=== PATIENT | male | born 1955 | race Caucasian/White ===

== ENCOUNTER 2017-03-15 07:47 | Inpatient (IN) | payer OTHER, MEDICAID ==
[~2017-03-15] VITALS: Ht 170.2 cm; Wt 73.0 kg
[2017-03-15 07:52] VITALS: BP 121/79
--- NOTE | 2017-03-15 07:58 | NUR ---
Patient assisted to Bed 2 at this time.
--- NOTE | 2017-03-15 08:03 | NUR ---
Pt BIB clay stain mixer for cough and generalized weakness since 344 today. Per caretake, pt is able to abulate by himself with little support normally. But today, he was not able to. Breathing is even and unlabored. Lung sounds are clear bilaterally. VSS. No acute distress.
[2017-03-15] MEDS ORDERED: CARB100T PO (08:05)
[2017-03-15] MEDS ORDERED: CEPH250C16 PO (08:05)
[2017-03-15] MEDS ORDERED: [UNRECOGNIZED DRUG - CODE] PO (08:05)
[2017-03-15] MEDS ORDERED: LACT10SO1 PO (08:05)
[2017-03-15] MEDS ORDERED: SENN8.8S7 PO (08:05)
[2017-03-15] MEDS ORDERED: MULT-1528 PO (08:05)
[2017-03-15] MEDS ORDERED: TRAZ-286 PO (08:05)
[2017-03-15] MEDS ORDERED: CODE118S2 PO (08:05)
[2017-03-15] MEDS ORDERED: MIRABULK PO (08:05)
[2017-03-15] MEDS ORDERED: COL100L PO (08:05)
[2017-03-15] MEDS ORDERED: NACL 0.9% 1,000 ML IV SCH (08:21)
[2017-03-15] MEDS ORDERED: OSELTAMIVIR PHOSPHATE 75 MG CAP PO ONE (08:25)
[2017-03-15 08:58] LABS: BASOPHILS # (AUTO) 0.1 K/uL (0.00-0.22); BASOPHILS % (AUTO) 1.2 % (0.0-2.0); HEMATOCRIT 38.8 % (36-52); HEMOGLOBIN 13.1 g/dL (12.0-18.0); LYMPHOCYTES # (AUTO) 0.6 K/uL (2.0-11.5); LYMPHOCYTES % (AUTO) 10.8 % (20.5-51.1); MEAN CORPUSCULAR HEMOGLOBIN 32 pg (27-31); MEAN CORPUSCULAR HGB CONC 34 g/dL (33-37); MEAN CORPUSCULAR VOLUME 94 fL (80-94); MONOCYTES # (AUTO) 0.6 K/uL (0.8-1.0); MONOCYTES % (AUTO) 11.7 % (1.7-9.3); NEUTROPHILS # (AUTO) 4.1 K/uL (1.8-7.7); NEUTROPHILS % (AUTO) 76.3 % (42.2-75.2); PLATELET COUNT (AUTO) 126 K/uL (140-450); RED BLOOD CELL COUNT(AUTO) 4.14 MIL/uL (4.20-6.10); RED CELL DISTRIBUTION WIDTH 11.7 % (11.6-13.7)
[2017-03-15 09:32] LABS: ANION GAP 12.8 (8-16); CARBON DIOXIDE 29.3 mmol/L (21-32); POTASSIUM 4.1 mmol/L (3.5-5.1)
[2017-03-15 09:33] LABS: WHITE BLOOD COUNT (AUTO) 5.4 K/uL (4.8-10.8)
[2017-03-15 09:36] LABS: ALBUMIN 3.2 g/dL (3.4-5.0); APPEARANCE,URINE CLEAR (CLEAR); BILIRUBIN,URINE NEGATIVE (NEGATIVE); BLOOD, URINE 2+ (NEGATIVE); COLOR,URINE YELLOW (YELLOW); LEUKOCYTE ESTERASE ,URINE NEGATIVE (NEGATIVE); NITRITE, URINE POSITIVE (NEGATIVE); TOTAL BILIRUBIN 0.2 mg/dL (0.0-1.0); UGLUCOSE NEGATIVE (NEGATIVE)
[2017-03-15 09:46] LABS: RBC,URINE 0-5 (RARE) /HPF (0-5); WBC,URINE 0-5 (RARE) /HPF (0-5)
[2017-03-15 09:48] LABS: PROTHROMBIN TIME 11.2 secs (10.8-13.4)
[2017-03-15] MEDS ORDERED: ACETAMINOPHEN EXTRA STRENGTH 500 MG TAB PO ONE (09:55)
--- NOTE | 2017-03-15 09:56 | NUR ---
Pt has fever 101.6, cooling measures initiated, and communicated with , ordered tylenol. NAD
[2017-03-15] MEDS ORDERED: cefTRIAXone 1,000 MG VIAL ONE (09:59)
[2017-03-15] MEDS ORDERED: ZOLPIDEM 5 MG TAB PO PRN (10:45)
[2017-03-15] MEDS ORDERED: ACETAMINOPHEN 325 MG TAB PO PRN (10:45)
[2017-03-15] MEDS ORDERED: LORazepam 0.5 MG TAB PO PRN (10:45)
[2017-03-15] MEDS ORDERED: ONDANSETRON 4 MG/2 ML VIAL IM/IVP PRN (10:45)
[2017-03-15] MEDS ORDERED: HYDROcodone/APAP 7.5/325 MG 1 TAB PO PRN (10:45)
[2017-03-15] MEDS ORDERED: MORPHINE SULFATE 2 MG/ML SYR IVP PRN (10:45)
[2017-03-15] MEDS ORDERED: DOCUSATE SODIUM 100 MG GELCAP PO PRN (10:45)
--- NOTE | 2017-03-15 11:15 | NUR ---
Patient will be admitted to care of Dr Willson. Admited to tele. Will go to [id number]. Belongings list completed. Report to ZAHRAA Falcon.
--- NOTE | 2017-03-15 11:30 | NUR ---
PT TO ROOM 113 FROM ER, REPORT RECIEVED, PT AWAKE ALERT, APHASIC AT BASELINE, INITIAL VITALS TAKEN, ASSESSMENT DONE, PT PLACED ON MONUMENT SETTER, PT TAKES OFF HIS OWN O2, O2SAT 94% RA, SKIN WARM/HOT DRY COLOR WNL, ICE PACK UNDER ARMS, TEMP 101.6, PT AND PILOT SUPERVISOR LOISE ORIENTED TO ROOM AND FLOOR, PLAN OF CARE REVIEWED, SZ/FALL PRECAUTION INITIATED, WILL CONTINUE TO MONTIOR.
[2017-03-15 11:35] VITALS: BP 119/71
[2017-03-15] MEDS: NACL 0.9% 1,000 ML IV SCH ×2 (12:23→20:45)
[2017-03-15 14:26] LABS: CHOL/HDL RATIO 2.3 (1-4.5); MAGNESIUM 2.2 mg/dL (1.8-2.4)
[2017-03-15 14:27] LABS: FREE T4 (FREE THYROXINE) 0.66 ng/dL (0.76-1.46); THYROID STIMULATING HORMONE 1.29 uIU/mL (0.34-3.74)
--- NOTE | 2017-03-15 15:26 | NUR ---
PATIENT HAS BEEN SCREENED AND CATEGORIZED HIGH NUTRITION RISK. PATIENT WILL BE SEEN WITHIN 1-2 DAYS OF ADMISSION. 03/15/17-03/16/[address]
[2017-03-15 16:00] VITALS: BP 121/72
[2017-03-15] MEDS ORDERED: ALBUTEROL SULFATE/IPRATROPIU 3 ML SOL IH PRN (16:00)
--- NOTE | 2017-03-15 18:45 | NUR ---
ASSISTED WITH PUREE DIET FEEDING IN UP RIGHT POSITION, LOW APPETITE FOR PUREE FOOD, TOOK ALL OF THINKENED APPLE JUICE AND BROTH WELL, IVF INFUSING WELL, SITE CLEAR, WILL CONTINUE TO MONITOR.
--- NOTE | 2017-03-15 19:20 | NUR ---
REPORT GIVEN TO CUSTOMER MARKETING INTERN NURSE, PT IN STABLE CONDITION.
--- NOTE | 2017-03-15 19:21 | NUR ---
RECEIVED REPORT FROM FISHER POT NURSE PT IN STABLE CONDITION. NO S/S OF DISTRESS NOTED. PT HAS MR AND IS APHASIC. PT IS AWAKE AND ALERT. PT IS ON ROOM AIR AND O2 SAT IS 97%. IV TO R AC 20G PATENT AND INTACT, INFUSING WELL. SKIN IS WARM AND DRY TO TOUCH, COLOR WNL. SKIN INTACT. INITIAL ASSESSMENT COMPLETED. PLAN OF CARE DISCUSSED WITH PT AT THE BEDSIDE, PT UNABLE TO COMPREHEND. ALL SAFETY PRECAUTIONS MET, BOARD UPDATED, CALL LIGHT WITHIN REACH, WILL CONTINUE TO MONITOR
[2017-03-15 20:00] VITALS: BP 119/74
--- NOTE | 2017-03-15 20:20 | NUR ---
ASKED DR. JACOBSON ABOUT GIVING PO TAMIFLU SINCE PT HAS NOT HAD SWALLOW EVAL YET. DR. JACOBSON IN TO SEE PT, SHE STATES IT IS OKAY PT TOLERATED ONE PILL IN ER ALREADY.
[2017-03-15] MEDS: OSELTAMIVIR PHOSPHATE 75 MG CAP PO SCH (20:27)
--- NOTE | 2017-03-15 20:29 | NUR ---
GAVE PT PO TAMIFLU WITH APPLE SAUCE, PT TOLERATED WELL. NO S/S OF DISTRESS NOTED. WILL CONTINUE TO MONITOR
[2017-03-16] VITALS (7 sets, daily range): BP systolic 115–133; BP diastolic 64–81
[2017-03-16] MEDS: NACL 0.9% 1,000 ML IV SCH ×2 (02:32→18:31)
[2017-03-16 06:12] LABS: T4 (THYROXINE) 4.4 ug/dL (4.5-12.0)
[2017-03-16] MEDS: ALBUTEROL SULFATE/IPRATROPIU 3 ML SOL IH SCH ×3 (07:00→19:57)
[2017-03-16 07:09] LABS: BASOPHILS # (AUTO) 0.1 K/uL (0.00-0.22); BASOPHILS % (AUTO) 2.3 % (0.0-2.0); EOSINOPHILS % (AUTO) 0.3 % (0.0-4.0); HEMATOCRIT 38.3 % (36-52); HEMOGLOBIN 12.9 g/dL (12.0-18.0); LYMPHOCYTES % (AUTO) 19.1 % (20.5-51.1); MEAN CORPUSCULAR HEMOGLOBIN 32 pg (27-31); MEAN CORPUSCULAR HGB CONC 34 g/dL (33-37); MEAN CORPUSCULAR VOLUME 96 fL (80-94); MONOCYTES # (AUTO) 0.6 K/uL (0.8-1.0); MONOCYTES % (AUTO) 11.6 % (1.7-9.3); NEUTROPHILS # (AUTO) 3.7 K/uL (1.8-7.7); NEUTROPHILS % (AUTO) 66.7 % (42.2-75.2); PLATELET COUNT (AUTO) 109 K/uL (140-450); RED CELL DISTRIBUTION WIDTH 11.4 % (11.6-13.7); WHITE BLOOD COUNT (AUTO) 5.4 K/uL (4.8-10.8)
--- NOTE | 2017-03-16 07:30 | NUR ---
ENDORSEMENT RECEIVED FROM FINISHING AREA SUPERVISOR NURSE. PATIENT IS SLEEPING COMFORTABLY. RESPIRATION EVEN, UNLABOR ON ROOM AIR. SKIN DRY AND WARM. IV PATENT AND INTACT. NO DISTRESS NOTED AT THIS TIME, FLACC 0. BED AT LOW POSITION WITH PADDED SIDE RAILS. CALL LIGHT WITHIN REACH.
[2017-03-16 07:35] LABS: MAGNESIUM 1.9 mg/dL (1.8-2.4); PHOSPHORUS 2.9 mg/dL (2.5-4.9)
--- NOTE | 2017-03-16 07:36 | NUR ---
REPORT GIVEN TO DAY NURSE FOR CONTINUITY OF CARE, PT IN STABLE CONDITION NO S/S OF DISTRESS
[2017-03-16 07:44] LABS: ANION GAP 12.2 (8-16); CARBON DIOXIDE 27.7 mmol/L (21-32); POTASSIUM 3.9 mmol/L (3.5-5.1)
[2017-03-16] MEDS: OSELTAMIVIR PHOSPHATE 75 MG CAP PO SCH ×2 (08:11→21:07)
[2017-03-16 08:24] LABS: CREATININE 0.7 mg/dL (0.7-1.3)
--- NOTE | 2017-03-16 09:53 | NUR ---
PATIENT AWAKE, RESPONSIVE TO NAME. RESPIRATION EVEN, UNLABOR ON ROOM AIR. FLACC 0. NO DISTRESS NOTED AT THIS TIME. SPEECH THERAPIST IS AT BEDSIDE. CALL LIGHT WITHIN REACH
[2017-03-16] MEDS ORDERED: carBAMazepine 200 MG TAB PO SCH (10:13)
[2017-03-16] MEDS ORDERED: POLYETHYLENE GLYCOL 17 GM/PKT PO SCH (10:14)
[2017-03-16] MEDS ORDERED: SENNA 8.6 MG TAB PO SCH (10:15)
--- NOTE | 2017-03-16 10:31 | NUR ---
WELLNESS MANAGER note (bedside swallow evaluation completed) [id number]. Bedside swallow evaluation completed, please see report for details. WELLNESS MANAGER provided pt with education regarding purpose of evaluation and rationale for recommendations. Pt with profound MR and unlikely to benefit from education provided. No family/caregivers present. Recommend: 1) pureed textures 2) nectar-thick liquids 3) strict aspiration precautions (including pt must be FULLY awake/alert/upright for any PO intakes, alternate small/slow bites and sips, stop giving PO if pt becomes less alert/SOB/coughing) 4) 100% feeding assistance 5) no further WELLNESS MANAGER intervention indicated at this time. Physician to reorder if further concerns arise, as appropriate. G-codes: [id number] [id number] [id number] [facility] NOMS level 3. PVE for d/w RN (Karla) prior to and following bedside swallow evaluation completion. WELLNESS MANAGER posted safe swallow strategies above pt's HOB.
--- NOTE | 2017-03-16 12:30 | NUR ---
PATIENT IS AWAKE, RESPONSIVE TO NAME. RESPIRATION EVEN, UNLABOR ON ROOM AIR. FLACC 0. NO DISTRESS NOTED AT THIS TIME. CALL LIGHT WITHIN REACH
--- NOTE | 2017-03-16 14:00 | NUR ---
PATIENT IS SLEEPING COMFORTABLY. RESPIRATION EVEN, UNLABOR ON ROOM AIR. FLACC 0. NO DISTRESS NOTED AT THIS TIME. CALL LIGHT WITHIN REACH
--- NOTE | 2017-03-16 14:32 | NUR ---
03/16/2017 RD INITIAL ASSESSMENT COMPLETED PLEASE REFER TO NUTRITION ASSESSMENT UNDER CARE ACTIVITY FOR ESTIMATED NUTRITIONAL NEEDS. 1.DIETITIAN WILL MONITOR PO INTAKE, NUTRITION-RELATED LABS TRENDING WNL, SKIN INTEGRITY, WEIGHTS, GI FUNCTION. 2.CONTINUE CURRENT DIET OF PUREE WITH HONEY THICKENED LIQUIDS TOLEARTED. 3.RD TO FOLLOW-UP IN 2-3 DAYS PATIENT IS HIGH RISK. RUBY [address] Addendum: 03/16/17 at [address] SPOKE WITH DR. LIRIANO, DISCUSSED MARKETING COORDINATOR RECOMMENDATION FOR NECTAR THICK LIQUIDS, DR. LIRIANO STATED HE WILL CHANGE DIET ORDER
--- NOTE | 2017-03-16 16:00 | NUR ---
COOLING MEASURE WAS APPLIED. 2 ICE PACKS UNDER AXILLARY.
--- NOTE | 2017-03-16 18:22 | NUR ---
PATIENT IS AWAKE, ALERT, EATING DINNER. RESPIRATION EVEN, UNLABOR ON ROOM AIR. NO DISTRESS NOTED. FLACC 0. IV PATENT AND INTACT. CALL LIGHT WITHIN REACH
--- NOTE | 2017-03-16 19:16 | NUR ---
ENDORSEMENT GIVEN TO THE HVAC LEAD NURSE. PATIENT IS STABLE AT THIS TIME
--- NOTE | 2017-03-16 19:30 | NUR ---
RECEIVED REPORT FROM DAY SHIFT RN, PATIENT RESTING IN BED, NO S/S OF DISTRESS NOTED, RESPIRATION EVEN AND UNLABORED, IV PATENT AND INTACT, INFUSING NS AT 100ML/HR, CALL LIGHT WITHIN REACH, SAFETY MEASURE ENSURED, WILL CONTINUE TO MONITOR.
[2017-03-16] MEDS: traZODone 50 MG TAB PO SCH (21:06)
[2017-03-16] MEDS: carBAMazepine 200 MG TAB PO SCH (21:07)
--- NOTE | 2017-03-16 21:18 | NUR ---
DUE MEDICATION GIVEN, PATIENT TOLERATED WELL. NO S/S OF DISTRESS NOTED, CALL LIGHT WITHIN REACH, SAFETY MEASURE ENSURED, WILL CONTINUE TO MONITOR.
--- NOTE | 2017-03-16 22:34 | NUR ---
NO CHANGE IN CONDITION, PATIENT WAS SLEEPING, BUT EASY TO AROUSE, RESPIRATION EVEN AND UNLABORED, REPOSITIONED PATIENT WITH THE SUPERINTENDENT TRANSMISSION, CALL LIGHT WITHIN REACH, SAFETY MEASURE ENSURED, WILL CONTINUE TO MONITOR.
--- NOTE | 2017-03-17 00:04 | NUR ---
PATIENT WAS SLEEPING, BUT EASY TO AROUSE, NO S/S OF DISTRESS NOTED, RESPIRATION EVEN AND UNLABORED, REPOSITIONED PATIENT WITH THE MARKETING REP, CALL LIGHT WITHIN REACH, SAFETY MEASURE ENSURED, WILL CONTINUE TO MONITOR.
--- NOTE | 2017-03-17 02:45 | NUR ---
NO CHANGE IN CONDITION, PATIENT WAS SLEEPING, EASY TO AROUSE, NO S/S OF DISTRESS NOTED, RESPIRATION EVEN AND UNLABORED, REPOSITIONED PATIENT WITH THE HATCHERY HELPER, CALL LIGHT WITHIN REACH, SAFETY MEASURE ENSURED ,WILL CONTINUE TO MONITOR.
[2017-03-17] MEDS: NACL 0.9% 1,000 ML IV SCH ×3 (03:02→21:49)
[2017-03-17 04:00] VITALS: BP 128/65
--- NOTE | 2017-03-17 04:48 | NUR ---
NO CHANGE IN CONDITION, VITAL SIGNS STABLE, RESPIRATION EVEN AND UNLABORED, NO S/S OF DISTRESS NOTED, CHANGED GOWN AND REPOSITIONED PATIENT WITH THE CLOTH TESTER, CALL LIGHT WITHIN REACH, SAFETY MEASURE ENSURED, WILL CONTINUE TO MONITOR.
--- NOTE | 2017-03-17 06:50 | NUR ---
PATIENT IS SLEEPING, RESPIRATION EVEN AND UNLABORED, NO S/S OF DISTRESS NOTED, CALL LIGHT WITHIN REACH, SAFETY MEASURE ENSURED, WILL CONTINUE TO MONITOR.
--- NOTE | 2017-03-17 07:10 | NUR ---
ENDORSED PLAN OF CARE TO DAY SHIFT RN, PATIENT IS IN STABLE CONDITION, NO S/S OF DISTRESS NOTED.
[2017-03-17] MEDS: ALBUTEROL SULFATE/IPRATROPIU 3 ML SOL IH SCH ×3 (07:15→18:58)
[2017-03-17 07:17] LABS: BASOPHILS # (AUTO) 0.1 K/uL (0.00-0.22); BASOPHILS % (AUTO) 2.3 % (0.0-2.0); EOSINOPHILS # (AUTO) 0.1 K/uL (0-0.4); EOSINOPHILS % (AUTO) 1.4 % (0.0-4.0); HEMATOCRIT 39.2 % (36-52); HEMOGLOBIN 13.2 g/dL (12.0-18.0); LYMPHOCYTES % (AUTO) 26.6 % (20.5-51.1); MEAN CORPUSCULAR HEMOGLOBIN 32 pg (27-31); MEAN CORPUSCULAR HGB CONC 34 g/dL (33-37); MEAN CORPUSCULAR VOLUME 94 fL (80-94); MONOCYTES # (AUTO) 0.4 K/uL (0.8-1.0); MONOCYTES % (AUTO) 10.6 % (1.7-9.3); NEUTROPHILS # (AUTO) 2.2 K/uL (1.8-7.7); NEUTROPHILS % (AUTO) 59.1 % (42.2-75.2); PLATELET COUNT (AUTO) 137 K/uL (140-450); RED BLOOD CELL COUNT(AUTO) 4.18 MIL/uL (4.20-6.10); RED CELL DISTRIBUTION WIDTH 11.6 % (11.6-13.7); WHITE BLOOD COUNT (AUTO) 3.8 K/uL (4.8-10.8)
[2017-03-17 07:25] LABS: ANION GAP 12.7 (8-16); CARBON DIOXIDE 27.2 mmol/L (21-32); CREATININE 0.6 mg/dL (0.7-1.3); POTASSIUM 3.9 mmol/L (3.5-5.1)
--- NOTE | 2017-03-17 07:27 | NUR ---
ENDORSEMENT RECEIVED FROM TAR KETTLE RUNNER NURSE. PATIENT IS AWAKE, ALERT, RESPONSIVE TO NAME. RESPIRATION EVEN, UNLABOR ON ROOM AIR. SKIN DRY AND WARM. IV PATENT AND INTACT. NO DISTRESS NOTED AT THIS TIME. FLACC 0. BED AT LOW POSITION, PADDED SIDE RAILS. CALL LIGHT WITHIN REACH.
[2017-03-17 07:33] LABS: MAGNESIUM 1.9 mg/dL (1.8-2.4); PHOSPHORUS 3.3 mg/dL (2.5-4.9)
[2017-03-17 08:00] VITALS: BP 118/71
[2017-03-17] MEDS: SENNA 8.6 MG TAB PO SCH (09:10)
[2017-03-17] MEDS: carBAMazepine 200 MG TAB PO SCH ×2 (09:10→21:30)
[2017-03-17] MEDS: OSELTAMIVIR PHOSPHATE 75 MG CAP PO SCH ×2 (09:10→21:30)
[2017-03-17] MEDS: POLYETHYLENE GLYCOL 17 GM/PKT PO SCH (09:11)
--- NOTE | 2017-03-17 11:54 | NUR ---
PATIENT IS SLEEPING COMFORTABLY. RESPIRATION EVEN, UNLABOR ON ROOM AIR. FLACC 0, NO DISTRESS NOTED AT THIS TIME. CALL LIGHT WITHIN REACH
--- NOTE | 2017-03-17 12:52 | NUR ---
Social Work Note: I attempted to contact Patient's Board and care staff at . No response from facility therefore; I left my contact number and request for a call back as soon as possible.
--- NOTE | 2017-03-17 13:30 | NUR ---
PATIENT IS AWAKE, ALERT, EATING LUNCH. RESPIRATION EVEN, UNLABOR ON ROOM AIR. FLACC 0, NO DISTRESS NOTED AT THIS TIME. CALL LIGHT WITHIN REACH
[2017-03-17 16:00] VITALS: BP 109/66
--- NOTE | 2017-03-17 16:33 | NUR ---
PATIENT IS AWAKE, ALERT. RESPIRATION EVEN, UNLABOR ON ROOM AIR. FLACC 0. NO DISTRESS NOTED AT THIS TIME. VS WAS TAKEN. CALL LIGHT WITHIN REACH
--- NOTE | 2017-03-17 18:16 | NUR ---
PATIENT IS AWAKE, ALERT. RESPIRATION EVEN, UNLABOR ON ROOM AIR. FLACC 0, NO DISTRESS NOTED AT THIS TIME. IV PATENT AND INTACT. CALL LIGHT WITHIN REACH
--- NOTE | 2017-03-17 18:58 | NUR ---
PATIENT BEING FED FOOD BY MR. PALUMBO
--- NOTE | 2017-03-17 19:24 | NUR ---
ENDORSEMENT GIVEN TO THE MARBLE COPER NURSE. PATIENT IS STABLE AT THIS TIME
--- NOTE | 2017-03-17 19:34 | NUR ---
RECEIVED REPORT FROM DAY SHIFT RN, PATIENT RESTING IN BED, AWAKE ALERT APHASIC, NO S/S OF DISTRESS NOTED, RESPIRATION EVEN AND UNLABORED, IV PATENT AND INTACT, INFUSING NS AT 100ML/HR, CALL LIGHT WITHIN REACH, SAFETY MEASURE ENSURED, WILL CONTINUE TO MONITOR.
[2017-03-17 19:47] VITALS: BP 107/64
[2017-03-17] MEDS: traZODone 50 MG TAB PO SCH (21:30)
--- NOTE | 2017-03-17 21:53 | NUR ---
DUE MEDICATION GIVEN, PATIENT TOLERATED WELL, NO S/S OF DISTRESS NOTED, RESPIRATION EVEN AND UNLABORED, REPOSITIONED PATIENT WITH THE SECURITY DISPATCHER, CALL LIGHT WITHIN REACH, SAFETY MEASURE ENSURED, WILL CONTINUE TO MONITOR.
--- NOTE | 2017-03-17 23:11 | NUR ---
VOIDED IN THE BED, CLEANED AND CHANGED GOWN, REPOSITIONED PATIENT WITH THE ANALYTICAL TECHNICIAN, PATIENT TOLERATED WELL. NO S/S OF DISTRESS NOTED, CALL LIGHT WITHIN REACH, SAFETY MEASURE ENSURED, WILL CONTINUE TO MONITOR.
[2017-03-17 23:43] VITALS: BP 103/66
[2017-03-18] MEDS ORDERED: MENTHOL/ZINC OXIDE 113 GM TUBE TP SCH (01:00)
--- NOTE | 2017-03-18 02:13 | NUR ---
NO CHANGE IN CONDITION, PATIENT WAS SLEEPING, EASY TO AROUSE, RESPIRATION EVEN AND UNLABORED, REPOSITIONED PATIENT WITH THE NITRO WORKER, CALL LIGHT WITHIN REACH, SAFETY MEASURE ENSURED, WILL CONTINUE TO MONITOR.
--- NOTE | 2017-03-18 04:05 | NUR ---
PATIENT IS SLEEPING, RESPIRATION EVEN AND UNLABORED, CALL LIGHT WITHIN REACH, SAFETY MEASURE ENSURED, WILL CONTINUE TO MONITOR.
--- NOTE | 2017-03-18 04:57 | NUR ---
VOIDED IN THE BED, CLEANED THE PATIENT AND CHANGED GOWN, REPOSITIONED THE PATIENT WITH THE SLD INCLUSION TEACHER, CALL LIGHT WITHIN REACH, SAFETY MEASURE ENSURED, WILL CONTINUE TO MONITOR.
--- NOTE | 2017-03-18 06:27 | NUR ---
NO CHANGE IN CONDITION, PATIENT RESTING IN BED, NO S/S OF DISTRESS NOTED, PATIENT IS CLEAN AND DRY, REPOSITIONED PATIENT WITH THE LOCK INSTALLER, CALL LIGHT WITHIN REACH, SAFETY MEASURE ENSURED, WILL CONTINUE TO MONITOR.
[2017-03-18] MEDS: ALBUTEROL SULFATE/IPRATROPIU 3 ML SOL IH SCH ×3 (06:56→19:17)
[2017-03-18 07:03] LABS: BASOPHILS # (AUTO) 0.1 K/uL (0.00-0.22); BASOPHILS % (AUTO) 2.7 % (0.0-2.0); EOSINOPHILS # (AUTO) 0.1 K/uL (0-0.4); HEMATOCRIT 38.3 % (36-52); HEMOGLOBIN 13.3 g/dL (12.0-18.0); LYMPHOCYTES # (AUTO) 1.2 K/uL (2.0-11.5); LYMPHOCYTES % (AUTO) 30.3 % (20.5-51.1); MEAN CORPUSCULAR HEMOGLOBIN 32 pg (27-31); MEAN CORPUSCULAR HGB CONC 35 g/dL (33-37); MEAN CORPUSCULAR VOLUME 93 fL (80-94); MONOCYTES # (AUTO) 0.4 K/uL (0.8-1.0); MONOCYTES % (AUTO) 10.3 % (1.7-9.3); NEUTROPHILS % (AUTO) 54.7 % (42.2-75.2); PLATELET COUNT (AUTO) 133 K/uL (140-450); RED BLOOD CELL COUNT(AUTO) 4.11 MIL/uL (4.20-6.10); RED CELL DISTRIBUTION WIDTH 11.8 % (11.6-13.7); WHITE BLOOD COUNT (AUTO) 3.8 K/uL (4.8-10.8)
[2017-03-18 07:08] LABS: ANION GAP 12.4 (8-16); CARBON DIOXIDE 27.4 mmol/L (21-32); CREATININE 0.6 mg/dL (0.7-1.3); POTASSIUM 3.8 mmol/L (3.5-5.1)
[2017-03-18 07:10] LABS: MAGNESIUM 1.9 mg/dL (1.8-2.4); PHOSPHORUS 3.3 mg/dL (2.5-4.9)
--- NOTE | 2017-03-18 07:20 | NUR ---
ENDORSED PLAN OF CARE TO DAY SHIFT RN, PATIENT RESTING IN BED, IN STABLE CONDITION, NO S/S OF DISTRESS.
--- NOTE | 2017-03-18 07:22 | NUR ---
RECEIVED BEDSIDE REPORT FROM NIGHTSHIFT NURSE. PATIENT CURRENTLY RESTING IN BED. NO SIGNS OF RESPIRATORY DISTRESS OR RESPIRATORY DEPRESSION. RESPIRATIONS ARE EVEN AND UNLABORED. IV FLUIDS RUNNING AT 100ML/HR. CALL LIGHT WITHIN REACH OF PATIENT. UPDATED BOARD WITH NEW INFORMATION. WILL CONTINUE TO MONITOR PATIENT.
[2017-03-18 08:00] VITALS: BP 120/62
[2017-03-18] MEDS: NACL 0.9% 1,000 ML IV SCH ×2 (08:45→19:25)
--- NOTE | 2017-03-18 09:24 | NUR ---
LATE ENTRY FOR 03/17/17 CM NOTE CALLED THE LISTED DIRECTOR OF ACQUISITION MARKETING NAZ STANFORD PH# [phone], VOICEMAIL BOX FULL, UNABLE TO LEAVE A MESSAGE. CALLED LISTED PRIMARY CAREGIVER MARIO PH# [phone] AND SHE SAID SHE CANNOT ANSWER QUESTIONS REGARDING THE PATIENT AND SHE WILL HAVE SOMEONE CALL BACK. RECEIVED A CALL FROM CLINTON SPENCER AND SHE SAID SHE IS ONE THE NURSES IN PATIENTS BOARD AND CARE PH# [phone]. PER CLINTON SPENCER, THEY CAN TAKE BACK PATIENT ON TAMIFLU AND ORAL ANTIBIOTICS IF PATIENT NEEDS IT WHEN READY FOR DISCHARGE. CLINTON SPENCER ALSO STATED THAT THEY HAVE THEIR OWN PHYSICAL THERAPIST IN HOUSE IF PATIENT WILL NEED PHYSICAL THERAPY WHEN DISCHARGED.
--- NOTE | 2017-03-18 09:50 | NUR ---
PATIENT IS RESTING IN BED WITH NO SIGNS OF RESPIRATORY DISTRESS OR RESPIRATORY DEPRESSION. WILL CONTINUE TO MONITOR PATIENT.
[2017-03-18] MEDS: carBAMazepine 200 MG TAB PO SCH ×2 (10:01→21:13)
[2017-03-18] MEDS: POLYETHYLENE GLYCOL 17 GM/PKT PO SCH (10:01)
[2017-03-18] MEDS: SENNA 8.6 MG TAB PO SCH (10:01)
[2017-03-18] MEDS: OSELTAMIVIR PHOSPHATE 75 MG CAP PO SCH ×2 (10:01→21:13)
--- NOTE | 2017-03-18 11:28 | NUR ---
Telesales Agent Note: I contacted [facility] and spoke to Caregiver/Staff Sherri at to discuss and gather Patient's information According to Sherri the only person that can provide Patient's information is Mrs. Suyapa Sal and staff stated that she is not available at this time in the facility. I informed Staff that these communications writer has been attempting to call Mrs. Sal with no response yet and at this point her voicemail is full an one is unable to leave her anymore messages at . Staff Made a note and stated that Mrs. Sal will not be in the facility until 13:00. Staff got my contact information and stated that she will personally will inform Mrs. Sal of my calls and will provide my contact information with my request to call me back. I agreed, thank staff and ended call.
[2017-03-18] MEDS: HYDRAGUARD CREAM TP SCH (13:00)
--- NOTE | 2017-03-18 13:50 | NUR ---
PATIENT ASLEEP IN BED. PATIENT IS AROUSABLE TO NAME. PATIENT IS ALERT. NO SIGNS OF RESPIRATORY DISTRESS OR RESPIRATORY DEPRESSION. WILL CONTINUE TO MONITOR PATIENT
--- NOTE | 2017-03-18 14:30 | NUR ---
PHYSICAL THERAPY CO-SIGN The Physical Therapy Progress Notes documented by International Marketing Coordinator have been reviewed. I concur with the documentation of this BURN NURSE. Plan: continue as per plan of care if he remains in this hospital. Reviewed/Co-Signed by: Tamear Issa DPT Documentation Done by: Maryanne Loredo PTA Addendum: 03/19/17 at 0820 by Tamera Issa PT Amended: Links added.
--- NOTE | 2017-03-18 14:51 | NUR ---
I contact [facility] and I spoke to TJ Nath in regards to lack of communication and contact with Suyapa Sal [phone]. Pham stated that Suyapa sal is a Male and that he was available at the time and asked me if I wanted to speak to him and transfer the call. Mr. Dale apologized for his lack of response over couple days and stated that his phone was not functioning well and was unable to retrieved his messages. I Informed Mr. Sal about Patient's status and possible plan for discharge tomorrow. Mr. Sal stated that Patient has [facility] and that his complex case manager is Lauryn Mora at . Suyapa Sal also agreed to coordinate transportation for patient at discharge 03/19/17. However;asked for medications order to be done today 03/18/17 due to their pharmacy been closed over the weekend and needing to get patient's medications available before discharge. I asked test case developer Criss about issue with medication and she contact MD. and request was made. I talk to Mr. sal and inform him that medications order will be made today and he agreed to stop by today 03/18/17 in about an hour and he will be able to pickling tank operator at nurse station. He agreed to be here to pickling tank operator and to coordinate D/C for Patient on 03/19/17.
[2017-03-18 16:00] VITALS: BP 130/79
--- NOTE | 2017-03-18 19:10 | NUR ---
GAVE REPORT TO NIGHTSHIFT NURSE. PATIENT IS IN STABLE CONDITION.
--- NOTE | 2017-03-18 19:20 | NUR ---
RECEIVED REPORT FROM AM NURSE. PT RESTING IN BED, AWAKE, MAKES INCOMPREHENSIBLE SOUNDS, AMBULATES WITH ASSIST WITH GENERALIZED WEAKNESS PER AM NURSE. SPO2 94% ON ROOM AIR, RR 18 EVEN AND UNLABORED. INTERMITTENT NONPRODUCTIVE COUGH NOTED. IV ACCESS ASYMPTOMATIC, PATENT AND INTACT. IVF INFUSING WELL. DISCUSSED PLAN OF CARE WITH PT, WILL CONTINUE WITH CONSTANT REINFORCEMENT. ALL NEEDS MET. SAFETY MEASURES ENSURED. CALL LIGHT WITHIN REACH.
[2017-03-18 20:00] VITALS: BP 129/72
[2017-03-18] MEDS: traZODone 50 MG TAB PO SCH (21:13)
--- NOTE | 2017-03-18 21:20 | NUR ---
ADMINISTERED DUE MEDS CRUSHED IN APPLE SAUCE, PT ABLE TO SWALLOW MEDS WELL. ALL NEEDS MET. IVF INFUSING WELL. SAFETY MEASURES ENSURED. CALL LIGHT WITHIN REACH.
[2017-03-19] VITALS: BP 135/72
--- NOTE | 2017-03-19 00:15 | NUR ---
PT RESTING COMFORTABLY, SPO2 93% ON ROOM AIR, RR 18 EVEN AND UNLABORED. PT IS CLEAN AND DRY, PT ALREADY TURNED AND REPOSITIONED BY CNAs. ALL NEEDS MET. IVF INFUSING WELL. SAFETY MEASURES ENSURED. CALL LIGHT WITHIN REACH.
--- NOTE | 2017-03-19 04:28 | NUR ---
PT SLEEPING COMFORTABLY, RESPIRATIONS EVEN AND UNLABORED. ALL NEEDS MET. SAFETY MEASURES ENSURED. CALL LIGHT WITHIN REACH.
[2017-03-19] MEDS: NACL 0.9% 1,000 ML IV SCH (05:54)
[2017-03-19 06:46] LABS: BASOPHILS # (AUTO) 0.2 K/uL (0.00-0.22); BASOPHILS % (AUTO) 4.2 % (0.0-2.0); EOSINOPHILS # (AUTO) 0.2 K/uL (0-0.4); EOSINOPHILS % (AUTO) 3.9 % (0.0-4.0); HEMATOCRIT 38.3 % (36-52); LYMPHOCYTES % (AUTO) 23.6 % (20.5-51.1); MEAN CORPUSCULAR HEMOGLOBIN 32 pg (27-31); MEAN CORPUSCULAR HGB CONC 34 g/dL (33-37); MEAN CORPUSCULAR VOLUME 95 fL (80-94); MONOCYTES # (AUTO) 0.4 K/uL (0.8-1.0); MONOCYTES % (AUTO) 10.8 % (1.7-9.3); NEUTROPHILS # (AUTO) 2.4 K/uL (1.8-7.7); NEUTROPHILS % (AUTO) 57.5 % (42.2-75.2); PLATELET COUNT (AUTO) 148 K/uL (140-450); RED BLOOD CELL COUNT(AUTO) 4.03 MIL/uL (4.20-6.10); RED CELL DISTRIBUTION WIDTH 11.3 % (11.6-13.7); WHITE BLOOD COUNT (AUTO) 4.2 K/uL (4.8-10.8)
[2017-03-19 06:58] LABS: ANION GAP 11.8 (8-16); CARBON DIOXIDE 26.9 mmol/L (21-32); CREATININE 0.6 mg/dL (0.7-1.3); POTASSIUM 3.7 mmol/L (3.5-5.1)
[2017-03-19] MEDS: ALBUTEROL SULFATE/IPRATROPIU 3 ML SOL IH SCH ×2 (07:00→13:09)
--- NOTE | 2017-03-19 07:00 | NUR ---
PT SLEEPING WITH NO SIGNS OF DISTRESS NOTED AT THIS TIME, NO HHN GIVEN
[2017-03-19 07:04] LABS: MAGNESIUM 1.9 mg/dL (1.8-2.4)
--- NOTE | 2017-03-19 07:15 | NUR ---
ENDORSED PLAN OF CARE TO AM NURSE. CONDITION STABLE.
--- NOTE | 2017-03-19 07:30 | NUR ---
ENDORSEMENT RECEIVED FROM DIRECTOR OF SECURITY NURSE. PATIENT IS SLEEPING COMFORTABLY. RESPIRATION EVEN, UNLABOR ON ROOM AIR. SKIN DRY AND WARM. FLACC 0. NO DISTRESS NOTED AT THIS TIME. IV PATENT AND INTACT. BED AT LOW POSITION WITH PADDED SIDE RAILS. CALL LIGHT WITHIN REACH
[2017-03-19 08:00] VITALS: BP 121/68
[2017-03-19] MEDS: SENNA 8.6 MG TAB PO SCH (09:00)
[2017-03-19] MEDS: OSELTAMIVIR PHOSPHATE 75 MG CAP PO SCH (09:00)
[2017-03-19] MEDS: POLYETHYLENE GLYCOL 17 GM/PKT PO SCH (09:00)
[2017-03-19] MEDS: carBAMazepine 200 MG TAB PO SCH (09:00)
--- NOTE | 2017-03-19 11:30 | NUR ---
PATIENT IS AWAKE, ALERT, EATING LUNCH. RESPIRATION EVEN, UNLABOR ON ROOM AIR. FLACC 0. NO DISTRESS NOTED AT THIS TIME.
[2017-03-19] MEDS: HYDRAGUARD CREAM TP SCH (13:57)
--- NOTE | 2017-03-19 14:42 | NUR ---
03/19/17 RD FOLLOW UP COMPLETED Please refer to nutrition assessment under care activity for estimated needs. Recommendations: 1.Continue current diet as tolerated. 2.Encourage PO intakes prn. RD will follow up in 3-5 days; moderate risk. Amb[address] RD, [facility]
[2017-03-19] MEDS ORDERED: LEVO750T2 PO (14:45)
[2017-03-19] MEDS ORDERED: TAM75 PO (14:45)
[2017-03-19] MEDS ORDERED: LACT1.4C PO (14:45)
[2017-03-19] MEDS ORDERED: ALBU0.0912 IH (14:45)
[2017-03-19] MEDS ORDERED: Hydraguard TP (14:45)
--- NOTE | 2017-03-19 15:00 | NUR ---
PATIENT IS AWAKE, ALERT. RESPIRATION EVEN, UNLABOR. NO DISTRESS NOTED AT THIS TIME. CALL LIGHT WITHIN REACH
--- NOTE | 2017-03-19 16:02 | NUR ---
DISCHARGE INSTRUCTION AND PRESCRIPTIONS WERE GIVEN TO PATIENT'S PRIMER WATERPROOFING MACHINE OPERATOR, ABDOULAYE THOMPSON. REP VERBALIZED UNDERSTANDING. IV WAS REMOVED, CATHETER INTACT, NO ACTIVE BLEEDING SEEN, PATIENT TOLERATED WELL. ID BAND WAS REMOVED. ALL BELONGINGS WERE TAKEN WITH THE PATIENT. PATIENT IS STABLE AT THIS TIME. PATIENT IS ESCORTED OUT IN WHEELCHAIR BY STAFF AND REPS
== END 2017-03-19 16:00 | disposition home or self-care (01) | DRG 871 ==
LOC: MED 07:47 → MTU 10:45
PROVIDERS: ADMIT Family Medicine Sports Medicine; ATTEND Family Medicine Sports Medicine
DX: A41.9 Sepsis, unspecified organism (principal); J96.00 Acute respiratory failure, unspecified whether with hypoxia or hypercapnia; N17.0 Acute kidney failure with tubular necrosis; G93.41 Metabolic encephalopathy; E44.0 Moderate protein-calorie malnutrition; F73 Profound intellectual disabilities; E87.2 Acidosis; N39.0 Urinary tract infection, site not specified; J10.1 Influenza due to other identified influenza virus with other respiratory manifestations; G40.909 Epilepsy, unspecified, not intractable, without status epilepticus; M24.542 Contracture, left hand; Z87.81 Personal history of (healed) traumatic fracture; Z68.25 Body mass index [BMI] 25.0-25.9, adult
CPT/HCPCS: 36415; 36600; 71045; 76770; 80048; 80053; 80156; 81001; 82150; 82550; 82553; 82803; 83036; 83605; 83690; 83735; 83874; 83880; 84100; 84436; 84439; 84443; 84479; 84484; 85025; 85610; 85730; 87040; 87081; 87086; 87804; 92610; 93005; 94640; 96361; 96365; 97116; 97140; 97530; 97799; 99285; C1758; J0696; J7030; J7060; J7620; Q0092

== ENCOUNTER 2017-04-12 20:08 | Emergency (ER) | payer OTHER, MEDICAID ==
[~2017-04-12] VITALS: Ht 170.2 cm; Wt 74.8 kg
[~2017-04-12 20:08] MED LIST: ALBU0.0912 IH; CARB100T PO; CEPH250C16 PO; CODE118S2 PO; COL100L PO; Hydraguard TP; LACT1.4C PO; LACT10SO1 PO; LEVO750T2 PO; MIRABULK PO; MULT-1528 PO; SENN8.8S7 PO; TAM75 PO; TRAZ-286 PO; [UNRECOGNIZED DRUG - CODE] PO
[2017-04-12 20:24] VITALS: BP 137/83
--- NOTE | 2017-04-12 20:42 | NUR ---
PT TAKEN TO BED 4
--- NOTE | 2017-04-12 20:43 | NUR ---
61Y M BIB CONVERTIBLE POWER SHOVEL OPERATOR FROM [facility], S/P FALL BEFORE SHOWERING, PT HAS LAC TO MID UPPER LIP, BLEEDING IS CONTROLLED, ALSO ABRASION TO RIGHT KNEE, BLEEDING IS ALSO CONTROL, SPOKE TO CELESTE RN FROM FACILITY, STATES PT IS NOT UP TO DATE W/ TETANUS SHOT. PT IS NON VERBAL, BASIL IS CONVERTIBLE POWER SHOVEL OPERATOR FROM FACILITY AND IS AT BEDSIDE. PT IS AMBULATORY. ER MD MADE AWARE.
--- NOTE | 2017-04-12 20:48 | NUR ---
ALTON SONI evaluating patient.
--- NOTE | 2017-04-12 21:35 | NUR ---
Patient discharged with v/s stable. Written and verbal after care instructions given and explained. Patient verbalized understanding. Ambulatory with by caregiver. All questions addressed prior to discharge. Advised to follow up with PMD.
[2017-04-12 21:36] VITALS: BP 126/74
== END 2017-04-12 21:35 | disposition home or self-care (01) ==
LOC: MED 20:08
DX: S01.511A Laceration without foreign body of lip, initial encounter (principal); S80.01XA Contusion of right knee, initial encounter; Z79.899 Other long term (current) drug therapy; W06.XXXA Fall from bed, initial encounter; Y93.89 Activity, other specified; Y92.89 Other specified places as the place of occurrence of the external cause; Y99.8 Other external cause status
CPT/HCPCS: 99283